=== PATIENT | female | born 1990 | race Caucasian/White ===

== ENCOUNTER 2020-06-22 21:54 | Emergency (ER) | payer OTHER, SELFPAY ==
--- NOTE | ~2020-06-22 | CT_ITS ---
EXAMINATION: CT ANGIOGRAM OF THE CHEST WITH AND WITHOUT CONTRAST (CT PULMONARY ANGIOGRAM FOR PE) CLINICAL INFORMATION: Reason for Exam COVID positive, chest pain, elevated D-dimer, rule out PE COMPARISON: Radiograph 06/22/2020 TECHNIQUE: Prior to contrast administration, noncontrast localization images were obtained. Subsequently, multidetector volumetric imaging was performed from the thoracic inlet to below the diaphragms following the administration of 65 mL Omnipaque 350 intravenous contrast. No contrast reaction reported Sagittal, coronal, and MIP oblique sagittal reformatted images were obtained on the CT workstation, uploaded to PACS, and reviewed. This CT examination was performed using dose optimization techniques as appropriate, variously including the following: *Automated exposure control *Adjustment of mA and/or kV according to patient size (this includes techniques or standardized protocols for targeted exams where dose is matched to indication/reason for exam; i.e. extremities or head) *Use of iterative reconstruction technique Total exam dose-length product 454 mGy-cm FINDINGS: QUALITY OF STUDY/CONTRAST BOLUS: Satisfactory. PULMONARY ARTERIES: No central or segmental pulmonary emboli. THORACIC AORTA: No aneurysm or dissection. LUNG: The central airways are patent. There is peripheral patchy opacity present in the right lower lobe. Minimal patchy opacity peripherally in both upper lobes. PLEURA: No pleural effusion or pneumothorax. MEDIASTINUM: Normal heart size. No pericardial effusion. No hilar or mediastinal lymphadenopathy. No evidence of septal bowing or right heart strain. CHEST WALL/AXILLA: No axillary or internal mammary lymphadenopathy. OSSEOUS STRUCTURES: No acute or suspicious osseous abnormality. UPPER ABDOMEN: Status post cholecystectomy. No reflux of contrast into the hepatic veins to suggest elevated right heart pressures. CT/CT angio chest PE protocol IMPRESSION: 1. No pulmonary embolism. 2. Patchy peripheral opacities are seen VTE: negative
--- NOTE | ~2020-06-22 | XR_ITS ---
EXAMINATION: XR CHEST CLINICAL INFORMATION: Chest pain COMPARISON: None TECHNIQUE: Frontal view of the chest was obtained. FINDINGS: The lungs are well expanded. There is no focal consolidation, edema, or effusion. No pneumothorax. The cardiomediastinal silhouette is within normal limits. No acute osseous abnormality. XR/XR chest 1V IMPRESSION: Clear lungs.
[2020-06-22 22:10] VITALS: BP 113/75; PULSE 109; RESP 17; TEMP 36.8; O2SAT 96; BMI 39.4
--- NOTE | 2020-06-22 22:12 | ECG_ITS ---
Test Reason : DIZZY Blood Pressure : / mmHG Vent. Rate : 102 BPM Atrial Rate : 102 BPM P-R Int : 122 ms QRS Dur : 074 ms QT Int : 332 ms P-R-T Axes : 035 031 022 degrees QTc Int : 432 ms Sinus tachycardia Otherwise normal ECG No previous ECGs available Referred By: Generic ED Physician Electronically Signed By:Kavon Willis
[2020-06-23 01:08] VITALS: BP 122/73; PULSE 95; RESP 20; TEMP 37.6; O2SAT 95
[2020-06-23 01:24] LABS: MANUAL DIFF FLAG NO
[2020-06-23 01:25] LABS: Basophils Percent Auto 0.3 % (0-2); Eosinophils Percent Auto 0.2 % (0-4); Hematocrit 46.9 % (37-47); Hemoglobin 15.5 g/dl (12.0-16.0); Imm Gran Abs Auto 0.01 X10*3/uL (0.00-0.03); Imm Gran Pct Auto 0.2 % (0.0-0.4); Lymphocytes Absolute Auto 1.6 X10*3/uL (1.2-4.9); Lymphocytes Percent Auto 28.5 % (20-40); Mean Corpuscular Hemoglobin 29.6 pg (27.0-33.0); Mean Corpuscular Volume 89.5 fL (80-98); Mean Platelet Volume 10.3 fL (9.4-12.3); Monocytes Absolute Auto 0.5 X10*3/uL (0.1-1.2); Monocytes Percent Auto 8.9 % (2-11); Neutrophils Absolute Auto 3.5 X10*3/uL (2.0-8.3); Neutrophils Percent Auto 61.9 % (45-73); Platelet Count 147 X10*3/uL (160-400); Red Blood Count 5.24 X10*6/uL (4.20-5.50); Red Cell Distribution Width 13.2 % (11.0-16.0); White Blood Count 5.7 X10*3/uL (4.8-10.8)
--- NOTE | 2020-06-23 01:39 | ED_ITS ---
HPI - Chest Pain General Chief Complaint: Chest Pain Stated Complaint: Chest pain/+Covid Time Seen by Provider: 06/23/20 01:21 Source: patient Mode of arrival: ambulatory Limitations: no limitations History of Present Illness HPI narrative: 30-year-old female who presents emergency department for evaluation of left-sided anterior chest pain. The patient was diagnosed with COVID-19 infection approximately 1 week prior. She states that her symptoms include fever, chills, nonproductive cough, myalgias and fatigue. She denied having chest pain, shortness of breath, dyspnea on exertion, change in her sense of taste or smell or diarrhea. She states that her symptoms remained about the same with no significant change until yesterday evening. She states that she was in bed at around 6:00 p.m. when she had a sudden onset of left-sided anterior chest pain. She points to her left anterior chest when asked to localize the pain. She describes the pain as a poking sensation which was constant for approximately 10 minutes and then resolved. The pain was moderate to severe in intensity. The pain was associated with diaphoresis, lightheadedness and dizziness. The patient was concerned about the pain and c calista to the emergency department for evaluation. Since being in the emergency department she has had no further episodes of this type of chest pain. Related Data Allergies Allergy/AdvReac Type Severity Reaction Status Date / Time No Known Allergies Allergy Unverified 11/19/19 19:20 [No Known Allergies*] Review of Systems Review of Systems: Yes all other systems are reviewed and are negative [facility] Past Medical History [facility] Narrative: The patient has no chronic medical conditions that she takes medications for. She has a past surgical history for cholecystectomy and C- section. She denies tobacco use. She states she drinks alcohol in moderation on the weekends, she denies drug use. Medical History COVID-19 Social History Social History Advance Directives: No Advance Directives Information Provided: No Physical Exam Vital Signs: Vital Signs: Last Vital Signs Temp 99.6 F 06/23/20 01:08 Pulse 85 06/23/20 04:46 Resp 16 06/23/20 04:46 BP 131/71 06/23/20 04:46 Pulse Ox 97 06/23/20 04:46 Body Mass Index 39.4 Const: General: cooperative and healthy appearing Orientation/consciousness: oriented to person and oriented to place Limitations: no limitations HENMT: Head: Yes normal to inspection, Yes normocephalic and Yes atraumatic Ears: external ears normal General nose exam: Normal external nose present Face and sinus: Yes normal facial exam Mouth: Normal oral and palatal mucosa present Throat: Yes posterior oropharynx normal Eyes: Periorbital: periorbital findings normal Eyelids: Yes eyelids normal Conjunctivae: conjunctivae normal Sclerae: sclerae normal Corneas: corneas normal Pupils: Equal, round and reactive pupils present Direct Ophthalmoscopy: normal light reflex Neck: Neck: Yes full ROM, Yes no lymphadenopathy, Yes no meningeal signs, Yes trachea midline and Yes supple Chest: Chest palpation & inspection: normal inspection of the chest and normal palpation of entire chest wall Resp: Effort & Inspection: normal respiratory effort and able to speak in complete sentences Auscultation: clear to auscultation bilaterally Cardio: Rate: regular rate Rhythm: regular rhythm Heart sounds: S1 no rmal heart sound present, S2 normal heart sound present and no murmurs GI: Inspection: Yes normal to inspection Palpation (GI): Soft to palpation, nontender, no guarding, not rigid and No hepatosplenomegaly present : General: Yes no CVA tenderness Back/Spine/Pelvis: Back: no CVA tenderness Cervical Spine: normal cervical lordosis Thoracic/Lumbar Spine: thoracic and lumbar spine normal to inspection Skin: Lesions: no lesions Rashes: no rashes Wounds: no wounds Neuro: General: oriented to person, oriented to place and no meningeal signs Cranial nerves: Yes CN's II-XII intact bilaterally and Yes Equal, round and reactive pupils present Cognition (Neuro): normal cognition Motor exam (neuro): 5/5 motor strength present throughout Extrem: General: Yes normal to inspection and Yes full ROM Psych: Appearance: well kempt Mental Status: mental status grossly normal Speech and movement: Normal speech and movement present Affect: normal affect Attitude: cooperative Thought process: Normal thought process present Thought content: Normal thought content present Course Course Course Narrative: 30-year-old female COVID 19 positive x1 week who presents emergency department for evaluation of sudden onset of left anterior chest pain that lasted approximately 10 minutes then resolved. The pain was associated with diaphoresis and lightheadedness. Patient's physical examination was unremarkable. The patient's 12 EKG did reveal a sinus tachycardia. I did order a CBC, BMP, troponin, D-dimer, EKG and chest x-ray on this patient. 0538: The patient's laboratory evaluation was unremarkable except for an elevated D-dimer of 315. The patient's high sensitivity troponin was undetectable. The chest x-ray revealed no acute process. CT pulmonary angiogram PE protocol revealed no pulmonary embolism, the patient does have patchy infiltrates consistent with a viral pneumonia. I did discuss this with the patient. At this time she is not hypoxic her O2 saturation ranged between 95 and 97% on room air. The patient will not be started on antibiotics or steroids will be discharged home with printed instructions on COVID-19 pneumonia. MDM - Chest Pain Lab Data Result diagrams: 06/23/20 01:18 06/23/20 01:18 Labs: Lab Results 06/23/20 06/23/20 06/23/20 Range/Units 01:18 01:18 01:18 WBC 5.7 (4.8-10.8) X10*3/uL RBC 5.24 (4.20-5.50) X10*6/uL Hgb 15.5 (12.0-16.0) g/dl Hct 46.9 (37-47) % MCV 89.5 (80-98) fL MCH 29.6 (27.0-33.0) pg MCHC 33.0 (31.0-35.0) g/dl RDW 13.2 (11.0-16.0) % Plt Count 147 L (160-400) X10*3/uL MPV 10.3 (9.4-12.3) fL Immature Gran % (Auto) 0.2 (0.0-0.4) % Neut % (Auto) 61.9 (45-73) % Lymph % (Auto) 28.5 (20-40) % [place] % (Auto) 8.9 (2-11) % Eos % (Auto) 0.2 (0-4) % Baso % (Auto) 0.3 (0-2) % Lymph # (Auto) 1.6 (1.2-4.9) X10*3/uL [place] # (Auto) 0.5 (0.1-1.2) X10*3/uL Eos # (Auto) 0.0 (0.0-0.4) X10*3/uL Baso # (Auto) 0.0 (0.0-0.2) X10*3/uL Abs Immat Gran (auto) 0.01 (0.00-0.03) X10*3/uL Absolute Neuts (auto) 3.5 (2.0-8.3) X10*3/uL Absolute Nucleated RBC 0.000 (0.0-0.012) X10*3/uL Nucleated RBC % (auto) 0.0 (0.0-0.2) /100WBC D-Dimer 315 NG/ML Hold Blue Top SEE NOTE Sodium 138 (135-145) mmol/L Potassium 4.2 (3.3-5.1) mmol/L Chloride 102 (96-108) mmol/L Carbon Dioxide 25 (22-29) mmol/L Anion Gap 15 (12-20) BUN 10 (9-16) mg/dL Creatinine 0.84 (0.5-1.4) mg/dL Estim Creat Clear Calc 115.2 Estimated GFR > 60 Random Glucose 113 (60-115) mg/dL Calcium 9.2 (8.4-10.2) mg/dL Troponin I High Sens (<3.5-17.0) ng/L Beta HCG, Quant < 2 mIU/mL 06/23/20 Range/Units 01:18 WBC (4.8-10.8) X10*3/uL RBC (4.20-5.50) X10*6/uL Hgb (12.0-16.0) g/dl Hct (37-47) % MCV (80-98) fL MCH (27.0-33.0) pg MCHC (31.0-35.0) g/dl RDW (11.0-16.0) % Plt Count (160-400) X10*3/uL MPV (9.4-12.3) fL Immature Gran % (Auto) (0.0-0.4) % Neut % (Auto) (45-73) % Lymph % (Auto) (20-40) % [place] % (Auto) (2-11) % Eos % (Auto) (0-4) % Baso % (Auto) (0-2) % Lymph # (Auto) (1.2-4.9) X10*3/uL [place] # (Auto) (0.1-1.2) X10*3/uL Eos # (Auto) (0.0-0.4) X10*3/uL Baso # (Auto) (0.0-0.2) X10*3/uL Abs Immat Gran (auto) (0.00-0.03) X10*3/uL Absolute Neuts (auto) (2.0-8.3) X10*3/uL Absolute Nucleated RBC (0.0-0.012) X10*3/uL Nucleated RBC % (auto) (0.0-0.2) /100WBC D-Dimer NG/ML Hold Blue Top Sodium (135-145) mmol/L Potassium (3.3-5.1) mmol/L Chloride (96-108) mmol/L Carbon Dioxide (22-29) mmol/L Anion Gap (12-20) BUN (9-16) mg/dL Creatinine (0.5-1.4) mg/dL Estim Creat Clear Calc Estimated GFR Random Glucose (60-115) mg/dL Calcium (8.4-10.2) mg/dL Troponin I High Sens < 3.5 (<3.5-17.0) ng/L Beta HCG, Quant mIU/mL ECG Data ECG #1: Attestation: I personally reviewed and interpreted this ECG as follows: Interpretation: 2223: Sinus tachycardia with a rate of 102, normal [place] interval, QRS and QTC intervals, no ST segment elevation or depression, no T- wave abnormalities, except for the tachycardia this is a normal EKG Discharge Plan Discharge Clinical Impression: Chest pain, Pneumonia due to 2019-nCoV Patient Disposition: Home, Self-Care Instructions: COVID-19 (Coronavirus Disease 2019) (ED), Pneumonia (ED) Additional Instructions: Your laboratory evaluation was normal except for an elevated D-dimer. Your chest x-ray was normal. The CT scan of your chest with IV contrast did not reveal any blood clots in your lung which is reassuring however you do have an early viral pneumonia, this is caused by the COVID-19 virus. At this time, your symptoms are mild and you her oxygen level is normal therefore you do not need to be hospitalized, treated with antibiotics were treated with steroids. Insert pain medication Follow-up with your doctor in 2 days. Please return to the emergency department if your symptoms get worse or if you develop any symptoms that are concerning to you.
[2020-06-23 01:46] LABS: D Dimer 315 NG/ML
[2020-06-23 01:48] LABS: Anion Gap 15 (12-20); Blood Urea Nitrogen 10 mg/dL (9-16); Calcium 9.2 mg/dL (8.4-10.2); Carbon Dioxide 25 mmol/L (22-29); Chloride 102 mmol/L (96-108); Creatinine Clr Calc Pharmacy 115.2; Estimated Glomerular Filt Rate > 60; Glucose Random 113 mg/dL (60-115); Potassium 4.2 mmol/L (3.3-5.1); Sodium 138 mmol/L (135-145)
[2020-06-23 01:56] LABS: Troponin-I High Sensitivity < 3.5 ng/L (<3.5-17.0)
[2020-06-23 04:18] LABS: HCG Quantitative < 2 mIU/mL
[2020-06-23 04:46] VITALS: BP 131/71; PULSE 85; RESP 16; O2SAT 97
--- NOTE | 2020-06-23 04:47 | PC.NURSE ---
Pt resting on stretcher in NAD, breathing with ease on RA. Pt denies pain at this time but reports I get it when I cough. Pt awaiting CT scan which was initially delayed d/t inability of pt to answer CT screening questions. HCG quant by blood has resulted, CT aware and plan to take pt for scan shortly. PT aware. Stretcher remains in low locked position, rail raised. VSS.
[2020-06-23] MEDS: iohexoL 350 MG/ML 100 ML INFUS..BTL 65 ML IV (05:15)
== END 2020-06-23 06:15 | disposition home or self-care (01) ==
PROVIDERS: Emergency Provider Emergency Medicine Emergency Medical Services
DX: U07.1 COVID-19 (principal); J12.82 Pneumonia due to coronavirus disease 2019; R07.9 Chest pain, unspecified
CPT/HCPCS: 36415; 71045; 71275; 80048; 84484; 84702; 85025; 85379; 93005; 99284; Q9967

== ENCOUNTER 2021-09-28 20:34 | Emergency (ER) | payer OTHER, SELFPAY ==
[2021-09-28 21:53] VITALS: BP 117/91; PULSE 83; RESP 18; TEMP 37.3; O2SAT 98; BMI 39.4
[2021-09-29 00:06] LABS: MANUAL DIFF FLAG NO
[2021-09-29 00:10] LABS: Basophils Percent Auto 0.3 % (0-2); Eosinophils Absolute Auto 0.1 X10*3/uL (0.0-0.4); Eosinophils Percent Auto 0.8 % (0-4); Hematocrit 41.5 % (37.0-47.0); Hemoglobin 13.8 g/dl (12.0-16.0); Imm Gran Abs Auto 0.05 X10*3/uL (0.00-0.03); Imm Gran Pct Auto 0.4 % (0.0-0.4); Lymphocytes Absolute Auto 3.3 X10*3/uL (1.2-4.9); Lymphocytes Percent Auto 26.9 % (20-40); Mean Corpuscular HGB Conc 33.3 g/dl (31.0-35.0); Mean Corpuscular Hemoglobin 29.9 pg (27.0-33.0); Mean Corpuscular Volume 89.8 fL (80.0-98.0); Mean Platelet Volume 10.2 fL (9.4-12.3); Monocytes Absolute Auto 0.9 X10*3/uL (0.1-1.2); Neutrophils Percent Auto 64.6 % (45-73); Platelet Count 232 X10*3/uL (160-400); Red Blood Count 4.62 X10*6/uL (4.20-5.50); Red Cell Distribution Width 13.7 % (11.0-16.0); White Blood Count 12.4 X10*3/uL (4.8-10.8)
[2021-09-29 00:11] LABS: Appearance Urine CLEAR; Color Urine YELLOW; Glucose Urine UA NEG (NEG); Leukocyte Esterase Urine NEG (NEG); Nitrite Urine NEG (NEG); Specific Gravity - Urine 1.025 (1.005-1.025); Urine Blood NEG (NEG); Urine Ketones NEG (NEG); Urine Protein NEG (NEG-TRACE)
[2021-09-29 00:13] LABS: UPreg QC Valid YES; Urine Pregnancy NEGATIVE (NEGATIVE)
[2021-09-29 00:23] LABS: Alanine Aminotransferase 10 U/L (0-31); Albumin Level 4.5 g/dL (3.5-5.0); Alkaline Phosphatase 68 U/L (39-117); Anion Gap 12 (12-20); Aspartate Amino Transferase 12 U/L (5-31); Bilirubin Direct 0.2 mg/dL (0.0-0.5); Bilirubin Total 0.5 mg/dL (0.0-1.0); Blood Urea Nitrogen 10 mg/dL (9-16); Calcium 9.6 mg/dL (8.4-10.2); Carbon Dioxide 27 mmol/L (22-29); Chloride 101 mmol/L (96-108); Creatinine Clr Calc Pharmacy 121.4; Estimated Glomerular Filt Rate > 60; Glucose Random 104 mg/dL (60-115); Lipase 36 U/L (8-78); Sodium 136 mmol/L (135-145); Total Protein 7.1 g/dL (6.5-8.0)
[2021-09-29 02:00] VITALS: BP 109/76; PULSE 69; TEMP 36.7; O2SAT 100
[2021-09-29 04:00] VITALS: BP 121/75; PULSE 60; O2SAT 97
[2021-09-29 06:00] VITALS: BP 128/79; PULSE 64; O2SAT 99
[2021-09-29 08:00] VITALS: BP 123/88; PULSE 75; RESP 16; O2SAT 100
[2021-09-29] MEDS: Lidocaine HCl Viscous 2 % 15 ML SOLUTION 10 ML MUCOUS MEM (08:00)
[2021-09-29] MEDS: Magnesium Hydrox/Alum Hydrox 30 ML ORAL.SUSP PO (08:00)
[2021-09-29] MEDS: Ondansetron ODT 4 MG TAB.RAPDIS TRANSLINGU (08:01)
--- NOTE | 2021-09-29 08:16 | ED.ABDPAIN ---
HPI - Abdominal Pain General Chief Complaint: Abdominal Pain Stated Complaint: abdominal pain Time Seen by Provider: 09/29/21 07:28 Source: patient Mode of arrival: ambulatory History of Present Illness HPI narrative: 31-year-old female with presentation for 1 week of epigastric discomfort that is worse at night and is described as burning sensation and not associated with any fever, chills but patient has been feeling nauseous but otherwise denies vomiting or dysuria. Patient does endorse that she has been drinking heavily since the passing of her uncle and does suffer from acid reflux at baseline. She is status post cholecystectomy and otherwise denies shortness of breath or chest pain/palpitations. Related Data Allergies Allergy/AdvReac Type Severity Reaction Status Date / Time No Known Allergies Allergy Unverified 11/19/19 19:20 [No Known Allergies*] Review of Systems Review of Systems Pertinent positives and negatives as stated in HPI 10 point review of systems is otherwise negative. PMFSH Past Medical History Source: nursing notes reviewed Medical History COVID-19 Social History Social History Advance Directives: No Advance Directives Information Provided: Yes Physical Exam ED Vital Signs: Vital Signs - 24 hr 09/28/21 21:53 09/29/21 02:00 09/29/21 04:00 Temperature 99.2 F 98.1 F Pulse Rate 83 69 60 Respiratory Rate 18 Blood Pressure 117/91 H 109/76 121/75 Pulse Oximetry 98 100 97 Oxygen Delivery Method Room Air Room Air Room Air 09/29/21 06:00 09/29/21 08:00 Temperature Pulse Rate 64 75 Respiratory Rate 16 Blood Pressure 128/79 123/88 Pulse Oximetry 99 100 Oxygen Delivery Method Room Air Room Air BMI result Body Mass Index 39.4 VITAL SIGNS: Reviewed. GENERAL: Well developed, well nourished, in no acute distress. HEAD: Normocephalic/atraumatic EYES: PERRLA, EOMI EARS: Ext canals without abnormality OROPHARYNX: no oral lesions noted, posterior pharynx clear LUNGS: Normal breath sounds. No adventitious sounds or accessory muscle use. SpO2<98> CARDIOVASCULAR: Regular rate and rhythm without noted murmurs ABDOMEN: Soft, minimal tenderness to palpation at the epigastrium without rebound, non-distended with bowel sounds. NEUROLOGIC: Alert and oriented x 4. Course Course Course Narrative: 31-year-old female with history and clinical presentation suggestive possible alcoholic gastritis, pancreatitis, and on review of all investigations there are no acute findings other than a leukocytosis which is likely reactive. Patient was provided with a GI cocktail as well as Zofran and on re-evaluation is feeling better. She is otherwise discharged home in stable condition with encouragement to drink more water, avoid alcohol, and use [id number] Mylanta. MDM - Abdominal Pain Lab Data Result diagrams: 09/29/21 00:00 09/29/21 00:00 Labs: Lab Results 09/29/21 09/29/21 09/29/21 Range/Units 00:00 00:00 00:00 WBC 12.4 H (4.8-10.8) X10*3/uL RBC 4.62 (4.20-5.50) X10*6/uL Hgb 13.8 (12.0-16.0) g/dl Hct 41.5 (37.0-47.0) % MCV 89.8 (80.0-98.0) fL MCH 29.9 (27.0-33.0) pg MCHC 33.3 (31.0-35.0) g/dl RDW 13.7 (11.0-16.0) % Plt Count 232 (160-400) X10*3/uL MPV 10.2 (9.4-12.3) fL Immature Gran % (Auto) 0.4 (0.0-0.4) % Neut % (Auto) 64.6 (45-73) % Lymph % (Auto) 26.9 (20-40) % [place] % (Auto) 7.0 (2-11) % Eos % (Auto) 0.8 (0-4) % Baso % (Auto) 0.3 (0-2) % Lymph # (Auto) 3.3 (1.2-4.9) X10*3/uL [place] # (Auto) 0.9 (0.1-1.2) X10*3/uL Eos # (Auto) 0.1 (0.0-0.4) X10*3/uL Baso # (Auto) 0.0 (0.0-0.2) X10*3/uL Abs Immat Gran (auto) 0.05 H (0.00-0.03) X10*3/uL Absolute Neuts (auto) 8.0 (2.0-8.3) x10*3/uL Absolute Nucleated RBC 0.000 (0.0-0.012) X10*3/uL Nucleated RBC % (auto) 0.0 (0.0-0.2) /100WBC Sodium 136 (135-145) mmol/L Potassium 4.0 (3.3-5.1) mmol/L Chloride 101 (96-108) mmol/L Carbon Dioxide 27 (22-29) mmol/L Anion Gap 12 (12-20) BUN 10 (9-16) mg/dL Creatinine 0.79 (0.5-1.4) mg/dL Estim Creat Clear Calc 121.4 Estimated GFR > 60 Random Glucose 104 (60-115) mg/dL Calcium 9.6 (8.4-10.2) mg/dL Total Bilirubin 0.5 (0.0-1.0) mg/dL Direct Bilirubin 0.2 (0.0-0.5) mg/dL AST 12 (5-31) U/L ALT 10 (0-31) U/L Alkaline Phosphatase 68 (39-117) U/L Total Protein 7.1 (6.5-8.0) g/dL Albumin 4.5 (3.5-5.0) g/dL Lipase 36 (8-78) U/L Urine Color YELLOW Urine Appearance CLEAR Urine pH 6.0 (5.0-8.0) Ur Specific [place] 1.025 (1.005-1.025) Urine Protein NEG (NEG-TRACE) MG/DL Urine Glucose (UA) NEG (NEG) MG/DL Urine Ketones NEG (NEG) MG/DL Urine Blood NEG (NEG) Urine Nitrite NEG (NEG) Ur Leukocyte Esterase NEG (NEG) Urine Test (NEGATIVE) 09/29/21 Range/Units 00:00 WBC (4.8-10.8) X10*3/uL RBC (4.20-5.50) X10*6/uL Hgb (12.0-16.0) g/dl Hct (37.0-47.0) % MCV (80.0-98.0) fL MCH (27.0-33.0) pg MCHC (31.0-35.0) g/dl RDW (11.0-16.0) % Plt Count (160-400) X10*3/uL MPV (9.4-12.3) fL Immature Gran % (Auto) (0.0-0.4) % Neut % (Auto) (45-73) % Lymph % (Auto) (20-40) % [place] % (Auto) (2-11) % Eos % (Auto) (0-4) % Baso % (Auto) (0-2) % Lymph # (Auto) (1.2-4.9) X10*3/uL [place] # (Auto) (0.1-1.2) X10*3/uL Eos # (Auto) (0.0-0.4) X10*3/uL Baso # (Auto) (0.0-0.2) X10*3/uL Abs Immat Gran (auto) (0.00-0.03) X10*3/uL Absolute Neuts (auto) (2.0-8.3) x10*3/uL Absolute Nucleated RBC (0.0-0.012) X10*3/uL Nucleated RBC % (auto) (0.0-0.2) /100WBC Sodium (135-145) mmol/L Potassium (3.3-5.1) mmol/L Chloride (96-108) mmol/L Carbon Dioxide (22-29) mmol/L Anion Gap (12-20) BUN (9-16) mg/dL Creatinine (0.5-1.4) mg/dL Estim Creat Clear Calc Estimated GFR Random Glucose (60-115) mg/dL Calcium (8.4-10.2) mg/dL Total Bilirubin (0.0-1.0) mg/dL Direct Bilirubin (0.0-0.5) mg/dL AST (5-31) U/L ALT (0-31) U/L Alkaline Phosphatase (39-117) U/L Total Protein (6.5-8.0) g/dL Albumin (3.5-5.0) g/dL Lipase (8-78) U/L Urine Color Urine Appearance Urine pH (5.0-8.0) Ur Specific [place] (1.005-1.025) Urine Protein (NEG-TRACE) MG/DL Urine Glucose (UA) (NEG) MG/DL Urine Ketones (NEG) MG/DL Urine Blood (NEG) Urine Nitrite (NEG) Ur Leukocyte Esterase (NEG) Urine Test NEGATIVE (NEGATIVE) Discharge Plan Discharge Clinical Impression: Alcoholic gastritis Patient Disposition: Home, Self-Care Instructions: Gastritis (ED), Diet for Stomach Ulcers and Gastritis (ED) Additional Instructions: 1. Stop drinking alcohol at this time, increase water intake. 2. Please review the recommendations for dietary considerations with as the inflammation in your stomach resolves. 3. Recommend [id number] Mylanta 3 times a day as directed on the outside bottle. Return to the ER for worsening symptoms.
== END 2021-09-29 09:02 | disposition home or self-care (01) ==
PROVIDERS: Emergency Provider Student in an Organized Health Care Education/Training Program
DX: K29.20 Alcoholic gastritis without bleeding (principal); Z90.49 Acquired absence of other specified parts of digestive tract
CPT/HCPCS: 36415; 80053; 81003; 81025; 82248; 83690; 85025; 99283; 99284

== ENCOUNTER 2022-04-10 14:30 | Emergency (ER) | payer OTHER, SELFPAY ==
--- NOTE | ~2022-04-10 | XR_ITS ---
EXAMINATION: XR CHEST CLINICAL INFORMATION: Chest pain. COMPARISON: 06/22/2020 chest radiograph. TECHNIQUE: 2 views of the chest were obtained. FINDINGS: No significant abnormality is noted involving the heart, lungs, mediastinum, bony thorax or soft tissues. XR/XR chest 2V IMPRESSION: No acute cardiopulmonary process.
--- NOTE | 2022-04-10 14:41 | ECG_ITS ---
Test Reason : chest pain Blood Pressure : / mmHG Vent. Rate : 077 BPM Atrial Rate : 077 BPM P-R Int : 152 ms QRS Dur : 078 ms QT Int : 374 ms P-R-T Axes : 035 007 015 degrees QTc Int : 423 ms Normal sinus rhythm Minimal voltage criteria for LVH, may be normal variant ( R in aVL ) Borderline ECG When compared with ECG of 22-JUN-2020 22:23, No significant change was found Referred By: Kathy Vale Electronically Signed By:GEO MONTES MD
[2022-04-10 14:50] VITALS: BP 144/86; PULSE 107; RESP 20; TEMP 36.6; O2SAT 99; BMI 39.4
--- NOTE | 2022-04-10 14:50 | ED_ITS ---
HPI - Chest Pain General Chief Complaint: Chest Pain <Kathy Vale CNP - Last Filed: 04/10/22 14:54> Stated Complaint: chest pain <Kathy Vale CNP - Last Filed: 04/10/22 14:54> Time Seen by Provider: 04/10/22 16:43 <Kathy Vale CNP - Last Filed: 04/10/22 14:54> Source: patient <Da Mcgill MD - Last Filed: 04/10/22 17:16> Mode of arrival: ambulatory <Da Mcgill MD - Last Filed: 04/10/22 17:16> Limitations: no limitations <Da Mcgill MD - Last Filed: 04/10/22 17:16> History of Present Illness HPI narrative: 32-year-old female patient who presents emergency department for evaluation of chest pain times 2-3 days. The patient states she has been getting intermittent, sharp pain and she points to her left anterior chest along the costochondral joints when asked to localize the pain. She states she gets an episode every 2 hours and will last approximately 5-10 minutes. She states occasionally she feels lightheaded with the chest pain. She denied pain radiation to her neck, jaw, back or arms. She denied associated shortness of breath nausea, vomiting or diaphoresis. The pain is not related to her activity level, the pain can come on at rest or with exertion, she denies fatigue with exertion or dyspnea on exertion. She states she has had palpitations in the past and she has been feeling some skipped beats over the past several days as well. She states she has not gone on any long trips, she denies any pain or swelling in her legs or abdomen, she has had no recent surgeries, she is not on control pills. She states that there is no history of early myocardial infarction in her family, she states that her mother had a heart attack in her 70s approximately 1 year prior and is doing well. <Da Mcgill MD - Last Filed: 04/10/22 17:16> Related Data Allergies/Adverse Reactions: Allergies Allergy/AdvReac Type Severity Reaction Status Date / Time No Known Allergies Allergy Unverified 11/19/19 19:20 [No Known Allergies*] <Kathy Vale CNP - Last Filed: 04/10/22 14:54> Review of Systems Review of Systems: Yes all other systems are reviewed and are negative <Da Mcgill MD - Last Filed: 04/10/22 17:16> [facility] Past Medical History [facility] Narrative: Past medical history: Pneumonia secondary to COVID-19 approximately 1/2 years prior, no residual symptoms. Past surgical history: Cholecystectomy 4 years prior, 10 years prior. Social history: She denies tobacco use. She drinks alcohol twice a week. She denies drug use. <Da Mcgill MD - Last Filed: 04/10/22 17:16> Medical History: Medical History COVID-19 <Kathy Vale CNP - Last Filed: 04/10/22 14:54> Social History Social History: Social History Advance Directives: No Advance Directives Information Provided: No <Kathy Vale CNP - Last Filed: 04/10/22 14:54> Physical Exam Vital Signs: Vital Signs: Last Vital Signs Temp 97.8 F 04/10/22 14:50 Pulse 107 H 04/10/22 14:50 Resp 20 04/10/22 14:50 BP 144/86 H 04/10/22 14:50 Pulse Ox 99 04/10/22 14:50 O2 Del Method 04/10/22 14:50 BMI result Body Mass Index 39.4 <Kathy Vale CNP - Last Filed: 04/10/22 14:54> Vital Signs: Last Vital Signs Temp 97.8 F 04/10/22 14:50 Pulse 107 H 04/10/22 14:50 Resp 04/10/22 14:50 BP 144/86 H 04/10/22 14:50 Pulse Ox 99 04/10/22 14:50 O2 Del Method 04/10/22 14:50 BMI result Body Mass Index 39.4 <Da Mcgill MD - Last Filed: 04/10/22 17:16> Const: Other: Awake, alert, female patient, very pleasant cooperative, does not appear to be in distress, answers all questions appropriately, elevated BMI of 39.5. <Da Mcgill MD - Last Filed: 04/10/22 17:16> HEENT: Head: Yes normal to inspection, Yes normocephalic and Yes atraumatic <Da Mcgill MD - Last Filed: 04/10/22 17:16> Ears: external ears normal <Da Mcgill MD - Last Filed: 04/10/22 17:16> General nose exam: Normal external nose present <Da Mcgill MD - Last Filed: 04/10/22 17:16> Face and sinus: Yes normal facial exam <Da Mcgill MD - Last Filed: 04/10/22 17:16> Mouth: Normal oral and palatal mucosa present <Da Mcgill MD - Last Filed: 04/10/22 17:16> Throat: Yes posterior oropharynx normal <Da Mcgill MD - Last Filed: 04/10/22 17:16> Eyes: General: appearance normal, both eyes and all related structures <Da Mcgill MD - Last Filed: 04/10/22 17:16> Pupils: Equal, round and reactive pupils present <Da Mcgill MD - Last Filed: 04/10/22 17:16> Neck: Neck: Yes normal visual inspection, Yes no lymphadenopathy, Yes trachea midline and Yes supple <Da Mcgill MD - Last Filed: 04/10/22 17:16> Chest: Other: The patient does have pain with palpation over her left chest in the area of the left costochondral joints. <Da Mcgill MD - Last Filed: 04/10/22 17:16> Resp: Effort & Inspection: normal respiratory effort and able to speak in complete sentences <Da Mcgill MD - Last Filed: 04/10/22 17:16> Auscultation: clear to auscultation bilaterally <Da Mcgill MD - Last Filed: 04/10/22 17:16> Cardio: Rate: regular rate <Da Mcgill MD - Last Filed: 04/10/22 17:16> Rhythm: regular rhythm <Da Mcgill MD - Last Filed: 04/10/22 17:16> Heart sounds: S1 normal heart sound present, S2 normal heart sound present and no murmurs <Da Mcgill MD - Last Filed: 04/10/22 17:16> GI: Inspection: Yes normal to inspection <Da Mcgill MD - Last Filed: 04/10/22 17:16> Palpation (GI): Soft to palpation, nontender and no guarding <Da Mcgill MD - Last Filed: 04/10/22 17:16> Auscultation: normal bowel sounds <Da Mcgill MD - Last Filed: 04/10/22 17:16> : General: Yes no CVA tenderness <Da Mcgill MD - Last Filed: 04/10/22 17:16> Back/Spine/Pelvis: Back: no CVA tenderness <Da Mcgill MD - Last Filed: 04/10/22 17:16> Skin: General skin exam: no rashes or lesions noted <Da Mcgill MD - Last Filed: 04/10/22 17:16> Neuro: Cranial nerves: Yes CN's II-XII intact bilaterally and Yes Equal, round and reactive pupils present <Da Mcgill MD - Last Filed: 04/10/22 17:16> Cognition (Neuro): normal cognition <Da Mcgill MD - Last Filed: 04/10/22 17:16> Motor exam (neuro): 5/5 motor strength present throughout <Da Mcigll MD - Last Filed: 04/10/22 17:16> Extrem: General: Yes normal to inspection <Da Mcgill MD - Last Filed: 04/10/22 17:16> Psych: Appearance: grossly normal <Da Mcgill MD - Last Filed: 04/10/22 17:16> Speech and movement: Normal speech and movement present <Da Mcgill MD - Last Filed: 04/10/22 17:16> Affect: normal affect <Da Mcgill MD - Last Filed: 04/10/22 17:16> Attitude: cooperative <Da Mcgill MD - Last Filed: 04/10/22 17:16> Thought process: Normal thought process present <Da Mcgill MD - Last Filed: 04/10/22 17:16> Thought content: Normal thought content present <Da Mcgill MD - Last Filed: 04/10/22 17:16> Course Course Course Narrative: This is an RME: Additional HPI, ROS, PE not included below will be deferred to primary provider. Patient is a 32-year-old female who presents to the emergency department for evaluation of chest pain. Reports history of palpitations over the past year intermittently. Developed chest pain yesterday, intermittent, sub sternal, lasting 5 minutes approximately with onset during exertion and at rest, self resolves with rest. Denies shortness of breath, nausea, vomiting. Reports similar pain 1 year ago, advised due to anxiety. D enies pmhx. Plan: labs, EKG, CXR, viral testing <Kathy Vale CNP - Last Filed: 04/10/22 14:54> This is an RME: Additional HPI, ROS, PE not included below will be deferred to primary provider. Patient is a 32-year-old female who presents to the emergency department for evaluation of chest pain. Reports history of palpi tations over the past year intermittently. Developed chest pain yesterday, intermittent, sub sternal, lasting 5 minutes approximately with onset during exertion and at rest, self resolves with rest. Denies shortness of breath, nausea, vomiting. Reports similar pain 1 year ago, advised due to anxiety. Denies pmhx. Plan: labs, EKG, CXR, viral testing <Da Mcgill MD - Last Filed: 04/10/22 17:16> Medical Decision Making Medical Decision Making MDM Narrative: 55-year-old female who presents emergency department for evaluation of 2 days of intermittent chest pain, coming on every 1-2 hours, lasting approximately 5 minutes, located along the left costochondral joints of her anterior chest, occasional lightheadedness and palpitations associated with the pain with no other significant associated symptoms. Patient has no significant cardiac risk factors except for her elevated BMI. She has no significant risk factors for pulmonary embolism. Patient did have tenderness palpation of her left chest. Labs were unremarkable including a nondetectable high sensitive troponin I, normal chest x-ray and unremarkable EKG unchanged from previous. Nishant nicholson's presentation is consistent with acute costochondritis. I did discuss this with her. Patient was advised to take ibuprofen 40 mg 3 times a day for the next 4-5 days then as needed, she is also advised to take Tylenol. She was given printed and verbal instructions and discharged home. <Da Mcgill MD - Last Filed: 04/10/22 17:16> Differential Diagnosis Differential diagnosis includes but is not limited to costochondritis, myocardial infarction, pulmonary embolism, pneumonia, palpitations. <Da Mcgill MD - Last Filed: 04/10/22 17:16> Lab Data MDM Lab Attestation statement: I reviewed the patient's lab results. <Da Mcgill MD - Last Filed: 04/10/22 17:16> Patient's laboratory evaluation did reveal an elevated white blood count [id number] as well normal. Patient's troponin was below detectable limits. <Da Mcgill MD - Last Filed: 04/10/22 17:16> Result Diagrams: 04/10/22 15:44 04/10/22 15:44 <Kathy Vale CNP - Last Filed: 04/10/22 14:54> Labs: Lab Results 04/10/22 04/10/22 04/10/22 Range/Units 15:44 15:44 15:44 WBC 11.6 H (4.8-10.8) X10*3/uL RBC 4.88 (4.20-5.50) X10*6/uL Hgb 14.5 (12.0-16.0) g/dl Hct 43.1 (37.0-47.0) % MCV 88.3 (80.0-98.0) fL MCH 29.7 (27.0-33.0) pg MCHC 33.6 (31.0-35.0) g/dl RDW 13.1 (11.0-16.0) % Plt Count 225 (160-400) X10*3/uL MPV 9.9 (9.4-12.3) fL Immature Gran % (Auto) 0.4 (0.0-0.4) % Neut % (Auto) 67.6 (45-73) % Lymph % (Auto) 24.8 (20-40) % [place] % (Auto) 5.7 (2-11) % Eos % (Auto) 1.2 (0-4) % Baso % (Auto) 0.3 (0-2) % Lymph # (Auto) 2.9 (1.2-4.9) X10*3/uL [place] # (Auto) 0.7 (0.1-1.2) X10*3/uL Eos # (Auto) 0.1 (0.0-0.4) X10*3/uL Baso # (Auto) 0.0 (0.0-0.2) X10*3/uL Abs Immat Gran (auto) 0.05 H (0.00-0.03) X10*3/uL Absolute Neuts (auto) 7.8 (2.0-8.3) x10*3/uL Absolute Nucleated RBC 0.000 (0.0-0.012) X10*3/uL Nucleated RBC % (auto) 0.0 (0.0-0.2) /100WBC PT 11.0 (10.0-13.1) SEC INR 1.0 (0.9-1.1) Sodium 138 (135-145) mmol/L Potassium 4.4 (3.3-5.1) mmol/L Chloride 106 (96-108) mmol/L Carbon Dioxide 22 (22-29) mmol/L Anion Gap 14 (12-20) BUN 7 L (9-16) mg/dL Creatinine 0.74 (0.5-1.4) mg/dL Estim Creat Clear Calc 128.4 Estimated GFR > 60 Random Glucose 94 (60-115) mg/dL Calcium 9.5 (8.4-10.2) mg/dL Magnesium 1.9 (1.6-2.6) mg/dL Total Bilirubin 0.5 (0.0-1.0) mg/dL AST 12 (5-31) U/L ALT 9 (0-31) U/L Alkaline Phosphatase 73 (39-117) U/L Troponin I High Sens (<3.5-17.0) ng/L Total Protein 7.0 (6.5-8.0) g/dL Albumin 4.3 (3.5-5.0) g/dL Lipase 23 (8-78) U/L Beta HCG, Quant < 2 mIU/mL COVID-19 (SANDOVAL) (Negative) COVID-19 Clin Com Influenza Type A (SERAFIN) (Negative) Influenza Type B (SERAFIN) (Negative) Influenza A & B Note 04/10/22 04/10/22 04/10/22 Range/Units 15:44 15:44 15:44 WBC (4.8-10.8) X10*3/uL RBC (4.20-5.50) X10*6/uL Hgb (12.0-16.0) g/dl Hct (37.0-47.0) % MCV (80.0-98.0) fL MCH (27.0-33.0) pg MCHC (31.0-35.0) g/dl RDW (11.0-16.0) % Plt Count (160-400) X10*3/uL MPV (9.4-12.3) fL Immature Gran % (Auto) (0.0-0.4) % Neut % (Auto) (45-73) % Lymph % (Auto) (20-40) % [place] % (Auto) (2-11) % Eos % (Auto) (0-4) % Baso % (Auto) (0-2) % Lymph # (Auto) (1.2-4.9) X10*3/uL [place] # (Auto) (0.1-1.2) X10*3/uL Eos # (Auto) (0.0-0.4) X10*3/uL Baso # (Auto) (0.0-0.2) X10*3/uL Abs Immat Gran (auto) (0.00-0.03) X10*3/uL Absolute Neuts (auto) (2.0-8.3) x10*3/uL Absolute Nucleated RBC (0.0-0.012) X10*3/uL Nucleated RBC % (auto) (0.0-0.2) /100WBC PT (10.0-13.1) SEC INR (0.9-1.1) Sodium (135-145) mmol/L Potassium (3.3-5.1) mmol/L Chloride (96-108) mmol/L Carbon Dioxide (22-29) mmol/L Anion Gap (12-20) BUN (9-16) mg/dL Creatinine (0.5-1.4) mg/dL Estim Creat Clear Calc Estimated GFR Random Glucose (60-115) mg/dL Calcium (8.4-10.2) mg/dL Magnesium (1.6-2.6) mg/dL Total Bilirubin (0.0-1.0) mg/dL AST (5-31) U/L ALT (0-31) U/L Alkaline Phosphatase (39-117) U/L Troponin I High Sens < 3.5 (<3.5-17.0) ng/L Total Protein (6.5-8.0) g/dL Albumin (3.5-5.0) g/dL Lipase (8-78) U/L Beta HCG, Quant mIU/mL COVID-19 (SANDOVAL) Negative (Negative) COVID-19 Clin Com See Note Influenza Type A (SERAFIN) Negative (Negative) Influenza Type B (SERAFIN) Negative (Negative) Influenza A & B Note See Note <Kathy Vale, HEATING SYSTEMS INSTALLER - Last Filed: 04/10/22 14:54> Lab Results 04/10/22 04/10/22 04/10/22 Range/Units 15:44 15:44 15:44 WBC 11.6 H (4.8-10.8) X10*3/uL RBC 4.88 (4.20-5.50) X10*6/uL Hgb 14.5 (12.0-16.0) g/dl Hct 43.1 (37.0-47.0) % MCV 88.3 (80.0-98.0) fL MCH 29.7 (27.0-33.0) pg MCHC 33.6 (31.0-35.0) g/dl RDW 13.1 (11.0-16.0) % Plt Count 225 (160-400) X10*3/uL MPV 9.9 (9.4-12.3) fL Immature Gran % (Auto) 0.4 (0.0-0.4) % Neut % (Auto) 67.6 (45-73) % Lymph % (Auto) 24.8 (20-40) % [place] % (Auto) 5.7 (2-11) % Eos % (Auto) 1.2 (0-4) % Baso % (Auto) 0.3 (0-2) % Lymph # (Auto) 2.9 (1.2-4.9) X10*3/uL [place] # (Auto) 0.7 (0.1-1.2) X10*3/uL Eos # (Auto) 0.1 (0.0-0.4) X10*3/uL Baso # (Auto) 0.0 (0.0-0.2) X10*3/uL Abs Immat Gran (auto) 0.05 H (0.00-0.03) X10*3/uL Absolute Neuts (auto) 7.8 (2.0-8.3) x10*3/uL Absolute Nucleated RBC 0.000 (0.0-0.012) X10*3/uL Nucleated RBC % (auto) 0.0 (0.0-0.2) /100WBC PT 11.0 (10.0-13.1) SEC INR 1.0 (0.9-1.1) Sodium 138 (135-145) mmol/L Potassium 4.4 (3.3-5.1) mmol/L Chloride 106 (96-108) mmol/L Carbon Dioxide 22 (22-29) mmol/L Anion Gap 14 (12-20) BUN 7 L (9-16) mg/dL Creatinine 0.74 (0.5-1.4) mg/dL Estim Creat Clear Calc 128.4 Estimated GFR > 60 Random Glucose 94 (60-115) mg/dL Calcium 9.5 (8.4-10.2) mg/dL Magnesium 1.9 (1.6-2.6) mg/dL Total Bilirubin 0.5 (0.0-1.0) mg/dL AST 12 (5-31) U/L ALT 9 (0-31) U/L Alkaline Phosphatase 73 (39-117) U/L Troponin I High Sens (<3.5-17.0) ng/L Total Protein 7.0 (6.5-8.0) g/dL Albumin 4.3 (3.5-5.0) g/dL Lipase 23 (8-78) U/L Beta HCG, Quant < 2 mIU/mL COVID-19 (SANDOVAL) (Negative) COVID-19 Clin Com Influenza Type A (SERAFIN) (Negative) Influenza Type B (SERAFIN) (Negative) Influenza A & B Note 04/10/22 04/10/22 04/10/22 Range/Units 15:44 15:44 15:44 WBC (4.8-10.8) X10*3/uL RBC (4.20-5.50) X10*6/uL Hgb (12.0-16.0) g/dl Hct (37.0-47.0) % MCV (80.0-98.0) fL MCH (27.0-33.0) pg MCHC (31.0-35.0) g/dl RDW (11.0-16.0) % Plt Count (160-400) X10*3/uL MPV (9.4-12.3) fL Immature Gran % (Auto) (0.0-0.4) % Neut % (Auto) (45-73) % Lymph % (Auto) (20-40) % [place] % (Auto) (2-11) % Eos % (Auto) (0-4) % Baso % (Auto) (0-2) % Lymph # (Auto) (1.2-4.9) X10*3/uL [place] # (Auto) (0.1-1.2) X10*3/uL Eos # (Auto) (0.0-0.4) X10*3/uL Baso # (Auto) (0.0-0.2) X10*3/uL Abs Immat Gran (auto) (0.00-0.03) X10*3/uL Absolute Neuts (auto) (2.0-8.3) x10*3/uL Absolute Nucleated RBC (0.0-0.012) X10*3/uL Nucleated RBC % (auto) (0.0-0.2) /100WBC PT (10.0-13.1) SEC INR (0.9-1.1) Sodium (135-145) mmol/L Potassium (3.3-5.1) mmol/L Chloride (96-108) mmol/L Carbon Dioxide (22-29) mmol/L Anion Gap (12-20) BUN (9-16) mg/dL Creatinine (0.5-1.4) mg/dL Estim Creat Clear Calc Estimated GFR Random Glucose (60-115) mg/dL Calcium (8.4-10.2) mg/dL Magnesium (1.6-2.6) mg/dL Total Bilirubin (0.0-1.0) mg/dL AST (5-31) U/L ALT (0-31) U/L Alkaline Phosphatase (39-117) U/L Troponin I High Sens < 3.5 (<3.5-17.0) ng/L Total Protein (6.5-8.0) g/dL Albumin (3.5-5.0) g/dL Lipase (8-78) U/L Beta HCG, Quant mIU/mL COVID-19 (SANDOVAL) Negative (Negative) COVID-19 Clin Com See Note Influenza Type A (SERAFIN) Negative (Negative) Influenza Type B (SERAFIN) Negative (Negative) Influenza A & B Note See Note <Da Mcgill MD - Last Filed: 04/10/22 17:16> Independent Interpretation I performed an independent interpretation of an: Rhythm Strip and Plain X-Ray <Da Mcgill MD - Last Filed: 04/10/22 17:16> Interpretation: My interpretation of the patient's two-view chest x-ray: No acute disease noted My independent interpretation the patient's 12 EKG done at 14:44 is as follows: Normal sinus rhythm with a rate of 77, normal AL interval, QRS duration and QTC intervals, inverted T-wave in lead 3, no ST segment elevation, no ST segment depression, no PACs, no PVCs when compared to EKG dated 06/22/2020 (there was artifact in the baseline) but there was no acute change compared today's EKG. <Da Mcgill MD - Last Filed: 04/10/22 17:16> Radiology Impression Discussion of test interpretation with radiology: I have reviewed the radiologist's reading. <Da Mcgill MD - Last Filed: 04/10/22 17:16> Radiologist Impression: XR chest 2V IMPRESSION: No acute cardiopulmonary process. Dictated By: Paul Byrne MD Signed By: <Electronically signed by Paul Byrne MD in [place]>04/10/22 1525 <Da Mcgill MD - Last Filed: 04/10/22 17:16> Independent Historian Clinical information obtained from an independent historian. History obtained from or confirmed by: Other (Friend, Edgar is here in the emergency department with the patient) <Da Mcgill MD - Last Filed: 04/10/22 17:16> Discharge Plan Discharge Clinical Impression: Acute costochondritis <Kathy Vale CNP - Last Filed: 04/10/22 14:54> Patient Disposition: Home, Self-Care <Kathy Vale CNP - Last Filed: 04/10/22 14:54> Instructions: Costochondritis (ED) <Kathy Vale CNP - Last Filed: 04/10/22 14:54> Additional Instructions: Your EKG was normal and unchanged from your previous EKG in 2020. Your chest x-ray was unremarkable as well. Your complete blood count was normal. Your comprehensive metabolic panel was normal as well. Your troponin (marker of heart damage) was below detectable limits suggesting that you have not had any heart damage/heart attack as the cause of your pain. Your pain is most likely caused by inflammation of the joints of your chest (costochondritis) and this is treated with anti-inflammatory medications such as ibuprofen. Take ibuprofen 200 mg pills, 2 pills every 6 hours for 4-5 days then as needed for pain Take Tylenol (acetaminophen) 500 mg pills, 2 pills every 4 to 6 hours as needed for pain. Follow-up with your doctor in 2 days. Please return to the emergency department if your symptoms get worse or if you develop any symptoms that are concerning to you. <Kathy Vale CNP - Last Filed: 04/10/22 14:54>
[2022-04-10 15:52] LABS: MANUAL DIFF FLAG NO
[2022-04-10 15:54] LABS: Basophils Percent Auto 0.3 % (0-2); Eosinophils Absolute Auto 0.1 X10*3/uL (0.0-0.4); Eosinophils Percent Auto 1.2 % (0-4); Hematocrit 43.1 % (37.0-47.0); Hemoglobin 14.5 g/dl (12.0-16.0); Imm Gran Abs Auto 0.05 X10*3/uL (0.00-0.03); Imm Gran Pct Auto 0.4 % (0.0-0.4); Lymphocytes Absolute Auto 2.9 X10*3/uL (1.2-4.9); Lymphocytes Percent Auto 24.8 % (20-40); Mean Corpuscular HGB Conc 33.6 g/dl (31.0-35.0); Mean Corpuscular Hemoglobin 29.7 pg (27.0-33.0); Mean Corpuscular Volume 88.3 fL (80.0-98.0); Mean Platelet Volume 9.9 fL (9.4-12.3); Monocytes Absolute Auto 0.7 X10*3/uL (0.1-1.2); Monocytes Percent Auto 5.7 % (2-11); Neutrophils Absolute Auto 7.8 x10*3/uL (2.0-8.3); Neutrophils Percent Auto 67.6 % (45-73); Platelet Count 225 X10*3/uL (160-400); Red Blood Count 4.88 X10*6/uL (4.20-5.50); Red Cell Distribution Width 13.1 % (11.0-16.0); White Blood Count 11.6 X10*3/uL (4.8-10.8)
[2022-04-10 16:11] LABS: COVID-19 Test Negative (Negative); IDNOW Serial# 16C4AD1C; IDNOW Serial# BCCEAD1C
[2022-04-10 16:12] LABS: Influenza A Negative (Negative); Influenza B2 Negative (Negative)
[2022-04-10 16:20] LABS: Alanine Aminotransferase 9 U/L (0-31); Albumin Level 4.3 g/dL (3.5-5.0); Alkaline Phosphatase 73 U/L (39-117); Anion Gap 14 (12-20); Aspartate Amino Transferase 12 U/L (5-31); Bilirubin Total 0.5 mg/dL (0.0-1.0); Blood Urea Nitrogen 7 mg/dL (9-16); Calcium 9.5 mg/dL (8.4-10.2); Carbon Dioxide 22 mmol/L (22-29); Chloride 106 mmol/L (96-108); Creatinine Clr Calc Pharmacy 128.4; Estimated Glomerular Filt Rate > 60; Glucose Random 94 mg/dL (60-115); Lipase 23 U/L (8-78); Magnesium 1.9 mg/dL (1.6-2.6); Potassium 4.4 mmol/L (3.3-5.1); Sodium 138 mmol/L (135-145)
[2022-04-10 16:21] LABS: Troponin-I High Sensitivity < 3.5 ng/L (<3.5-17.0)
[2022-04-10 16:23] LABS: HCG Quantitative < 2 mIU/mL
== END 2022-04-10 17:17 | disposition home or self-care (01) ==
PROVIDERS: Nurse Practitioner Family; Emergency Provider Emergency Medicine Emergency Medical Services
DX: R07.89 Other chest pain (principal); M94.0 Chondrocostal junction syndrome [Tietze]; Z20.822 Contact with and (suspected) exposure to COVID-19; Z20.828 Contact with and (suspected) exposure to other viral communicable diseases; Z79.899 Other long term (current) drug therapy
CPT/HCPCS: 71046; 80053; 83690; 83735; 84484; 84702; 85025; 85610; 87502; 87635; 93005; 99283

== ENCOUNTER 2022-08-06 22:16 | Emergency (ER) | payer OTHER, SELFPAY ==
[2022-08-06 22:25] VITALS: BP 124/83; PULSE 120; RESP 16; TEMP 36.6; O2SAT 99; BMI 42.9
--- NOTE | 2022-08-07 | ECG_ITS ---
Test Reason : DIZZINESS Blood Pressure : / mmHG Vent. Rate : 103 BPM Atrial Rate : 103 BPM P-R Int : 154 ms QRS Dur : 074 ms QT Int : 338 ms P-R-T Axes : 041 010 011 degrees QTc Int : 442 ms Sinus tachycardia Cannot rule out Anterior infarct , age undetermined Abnormal ECG When compared with ECG of 10-APR-2022 14:44, Nonspecific T wave abnormality now evident in Anterolateral leads Referred By: Generic ED Physician Electronically Signed By:Kavon Willis
[2022-08-07 00:09] VITALS: BP 113/77; PULSE 111; RESP 16; TEMP 36.5; O2SAT 98
[2022-08-07 00:20] LABS: Hematocrit 43.7 % (37.0-47.0); Hemoglobin 14.6 g/dl (12.0-16.0); Mean Corpuscular HGB Conc 33.4 g/dl (31.0-35.0); Mean Corpuscular Volume 89.7 fL (80.0-98.0); Mean Platelet Volume 10.4 fL (9.4-12.3); Platelet Count 251 X10*3/uL (160-400); Red Blood Count 4.87 X10*6/uL (4.20-5.50); Red Cell Distribution Width 13.2 % (11.0-16.0); White Blood Count 14.5 X10*3/uL (4.8-10.8)
--- NOTE | 2022-08-07 00:21 | MHC.EDTECH ---
patient ekg taken and was read by provider ,blood drawn and sent to lab ,vitals sign re check .
[2022-08-07 00:25] LABS: Appearance Urine Clear; Color Urine Yellow; Glucose Urine UA Negative (Negative); Leukocyte Esterase Urine Trace (Negative); Nitrite Urine Negative (Negative); PH 6.5 (5.0-9.0); UMIC TRIGGER UACC YES; Urine Blood Negative (Negative); Urine Ketones Negative (Negative); Urine Protein Negative (Neg-Trace)
[2022-08-07 00:27] LABS: Bacteria Urine Trace (None Seen); Hyaline Casts Urine 0-2 /LPF (0-2); RBC Urine 0-2 /HPF (0-2); UACC Culture Trigger YES
[2022-08-07 00:39] LABS: Alanine Aminotransferase 13 U/L (0-31); Albumin Level 4.5 g/dL (3.5-5.0); Alkaline Phosphatase 89 U/L (39-117); Anion Gap 14 (12-20); Aspartate Amino Transferase 17 U/L (5-31); Bilirubin Total 0.4 mg/dL (0.0-1.0); Blood Urea Nitrogen 9 mg/dL (9-16); Calcium 9.9 mg/dL (8.4-10.2); Carbon Dioxide 25 mmol/L (22-29); Chloride 106 mmol/L (96-108); Creatinine Clr Calc Pharmacy 117.2; Estimated Glomerular Filt Rate > 60; Glucose Random 103 mg/dL (60-115); Potassium 4.9 mmol/L (3.3-5.1); Sodium 140 mmol/L (135-145); Total Protein 7.7 g/dL (6.5-8.0)
[2022-08-07 02:19] VITALS: BP 125/72; PULSE 99; RESP 19; TEMP 36.9; O2SAT 100
--- NOTE | 2022-08-07 02:30 | PC.NURSE ---
this rn assumed care of pt from waiting room @ 0219. pt placed on environmental monitoring technician. pt educated on use of call caicedo. pt calm and cooperative. pt awaiting to be seen by ed provider
[2022-08-07 02:31] LABS: UPreg QC Valid YES; Urine Pregnancy NEGATIVE (NEGATIVE)
--- NOTE | 2022-08-07 02:50 | ED.DIZZY ---
HPI - Dizziness General Chief Complaint: Dizziness Stated Complaint: dizziness,numbness Time Seen by Provider: 08/07/22 02:21 History of Present Illness HPI Narrative: Patient is a 32-year-old female been under lot of stress. Patient not sleep well the night before. Only had a breakfast sandwich yesterday morning. Tonight patient had lightheadedness dizziness. She tries to eat a sandwich after while the symptoms seems to have gotten better. She denies any chest pain. No diaphoresis. No focal weakness. Not on control. No leg swelling. No history of blood clots. Does not think she is . No pain on urination. No new medication. No focal weakness. No exceptionally heavy menstruations. Timing duration has been normal. Related Data Allergies Allergy/AdvReac Type Severity Reaction Status Date / Time No Known Allergies Allergy Unverified 11/19/19 19:20 [No Known Allergies*] Review of Systems Review of Systems: No fever no chills no coughing congestion or history symptoms No diaphoresis. No pain on urination Positive generalized malaise Positive dizziness Yes all other systems are reviewed and are negative [facility]LY [facility] Past Medical History Medical History COVID-19 Social History Social History Advance Directives: No Advance Directives Information Provided: Yes Physical Exam Vital Signs: Vital Signs: Last Vital Signs Temp 98.4 F 08/07/22 02:19 Pulse 111 H 08/07/22 03:18 Resp 19 08/07/22 02:19 BP 111/70 08/07/22 03:18 Pulse Ox 100 08/07/22 02:19 O2 Del Method Room Air 08/07/22 02:19 BMI result Body Mass Index 42.9 Appearance: Alert. Oriented X3. No acute distress. Eyes: Pupils equal, round and reactive to light. ENT: Pharynx normal. Neck: Normal inspection. Neck supple. No lymph nodes noted. No crepitus CVS: Normal heart rate and rhythm. Pulses normal. Normal S1 and S2 Respiratory: No respiratory distress. Breath sounds normal. No Wheezing. No rales Abdomen: Soft and nontender. No rigidity. No distention. good BS x4 Skin: Skin warm and dry. Normal skin color. Normal skin turgor. Extremities: No lower extremity edema. Neurovascular intact to all extremities. No Lacerations. No Rash Neuro: Oriented X 3. No motor deficit. No sensory deficit. Moving all extermities. No slurred speech Medications Administered Generic Name Dose Route Start Last Admin Trade Name Freq PRN Reason Stop Dose Admin Sodium Chloride 1,000 mls @ 999 mls/hr 08/07/22 03:00 08/07/22 03:40 Ns IV 08/07/22 04:00 999 mls/hr .Q1H1M RAJSEH Administration Medical Decision Making Medical Decision Making [facility] Narrative: Patient's urine showed no signs of infection. test was negative. Unlikely to be related issues. Patient's hemoglobin is normal there is no evidence of anemia. Patient has no significant cardiac risk factors. No diabetes no high blood pressure no high cholesterol not a smoker never had heart attacks in the past. Patient has no risk for PE there is no leg swelling there is no travel patient not on control history not consistent with PE. Patient's alcohol was negative. No evidence for intoxication. Given IV fluids. Given p.o. at challenge. Will discharge patient home. In stable condition. Question secondary to anxiety, dehydration. In stable condition. Differential Diagnosis Differential Diagnoses: The differential diagnosis associated with the presentation includes Anemia, anxiety, urinary tract infection, palpitation Lab Data [facility] Lab Attestation statement: I reviewed the patient's lab results. 08/07/22 00:14 08/07/22 00:14 Labs: Lab Results 08/07/22 08/07/22 08/07/22 Range/Units 00:14 00:14 00:14 WBC 14.5 H (4.8-10.8) X10*3/uL RBC 4.87 (4.20-5.50) X10*6/uL Hgb 14.6 (12.0-16.0) g/dl Hct 43.7 (37.0-47.0) % MCV 89.7 (80.0-98.0) fL MCH 30.0 (27.0-33.0) pg MCHC 33.4 (31.0-35.0) g/dl RDW 13.2 (11.0-16.0) % Plt Count 251 (160-400) X10*3/uL MPV 10.4 (9.4-12.3) fL Absolute Nucleated RBC 0.000 (0.0-0.012) X10*3/uL Nucleated RBC % (auto) 0.0 (0.0-0.2) /100WBC Sodium 140 (135-145) mmol/L Potassium 4.9 (3.3-5.1) mmol/L Chloride 106 (96-108) mmol/L Carbon Dioxide 25 (22-29) mmol/L Anion Gap 14 (12-20) BUN 9 (9-16) mg/dL Creatinine 0.85 (0.5-1.4) mg/dL Estim Creat Clear Calc 117.2 Estimated GFR > 60 Random Glucose 103 (60-115) mg/dL Calcium 9.9 (8.4-10.2) mg/dL Total Bilirubin 0.4 (0.0-1.0) mg/dL AST 17 (5-31) U/L ALT 13 (0-31) U/L Alkaline Phosphatase 89 (39-117) U/L Total Protein 7.7 (6.5-8.0) g/dL Albumin 4.5 (3.5-5.0) g/dL Urine Color Yellow Urine Appearance Clear Urine pH 6.5 (5.0-9.0) Ur Specific [place] 1.010 (1.005-1.025) Urine Protein Negative (Neg-Trace) mg/dL Urine Glucose (UA) Negative (Negative) mg/dL Urine Ketones Negative (Negative) mg/dL Urine Blood Negative (Negative) Urine Nitrite Negative (Negative) Ur Leukocyte Esterase Trace H (Negative) Urine RBC 0-2 (0-2) /HPF Urine WBC 6-10 H (0-5) /HPF Ur Squamous Epith Cells 6-10 (0-2) /HPF Urine Bacteria Trace (None Seen) Hyaline Casts 0-2 (0-2) /LPF Urine Test (NEGATIVE) Ethyl Alcohol < 10 mg/dL 08/07/22 Range/Units 00:14 WBC (4.8-10.8) X10*3/uL RBC (4.20-5.50) X10*6/uL Hgb (12.0-16.0) g/dl Hct (37.0-47.0) % MCV (80.0-98.0) fL MCH (27.0-33.0) pg MCHC (31.0-35.0) g/dl RDW (11.0-16.0) % Plt Count (160-400) X10*3/uL MPV (9.4-12.3) fL Absolute Nucleated RBC (0.0-0.012) X10*3/uL Nucleated RBC % (auto) (0.0-0.2) /100WBC Sodium (135-145) mmol/L Potassium (3.3-5.1) mmol/L Chloride (96-108) mmol/L Carbon Dioxide (22-29) mmol/L Anion Gap (12-20) BUN (9-16) mg/dL Creatinine (0.5-1.4) mg/dL Estim Creat Clear Calc Estimated GFR Random Glucose (60-115) mg/dL Calcium (8.4-10.2) mg/dL Total Bilirubin (0.0-1.0) mg/dL AST (5-31) U/L ALT (0-31) U/L Alkaline Phosphatase (39-117) U/L Total Protein (6.5-8.0) g/dL Albumin (3.5-5.0) g/dL Urine Color Urine Appearance Urine pH (5.0-9.0) Ur Specific [place] (1.005-1.025) Urine Protein (Neg-Trace) mg/dL Urine Glucose (UA) (Negative) mg/dL Urine Ketones (Negative) mg/dL Urine Blood (Negative) Urine Nitrite (Negative) Ur Leukocyte Esterase (Negative) Urine RBC (0-2) /HPF Urine WBC (0-5) /HPF Ur Squamous Epith Cells (0-2) /HPF Urine Bacteria (None Seen) Hyaline Casts (0-2) /LPF Urine Test NEGATIVE (NEGATIVE) Ethyl Alcohol mg/dL Independent Interpretation I performed an independent interpretation of an: EKG Interpretation: Sinus heart rate is 80 IA QRS QT within normal limits there is no acute ST segment elevations. Discharge Plan Discharge Clinical Impression: Acute dehydration, Vaso vagal episode Patient Disposition: Home, Self-Care Instructions: Near Syncope (ED), Dehydration (ED) Referrals: Physician,None [Primary Care Provider] - 08/09/22
[2022-08-07 03:15] VITALS: BP 106/63; PULSE 82
[2022-08-07 03:16] LABS: Ethanol < 10 mg/dL
[2022-08-07 03:17] VITALS: BP 121/79; PULSE 101
[2022-08-07 03:18] VITALS: BP 111/70; PULSE 111
[2022-08-07] MEDS: 0.9 % Sodium Chloride 1,000 ML 999 ML IV (03:40)
--- NOTE | 2022-08-07 03:47 | PC.NURSE ---
this rn placed 20g iv in R Ac. pt tolerated well. pt medicated according to may. lights dimmed pt reports no new needs at this time
--- NOTE | 2022-08-07 04:55 | PC.NURSE ---
discharge orders placed for this pt. IVF still running. pt made aware of plan to discharge once IVF have infused
[2022-08-07 05:42] VITALS: BP 110/71; PULSE 82; RESP 16; TEMP 36.4; O2SAT 97
== END 2022-08-07 06:39 | disposition home or self-care (01) ==
PROVIDERS: Emergency Provider Emergency Medicine Emergency Medical Services
DX: R55 Syncope and collapse (principal); E86.0 Dehydration
CPT/HCPCS: 36415; 80053; 80307; 81001; 81025; 85027; 87086; 93005; 99283; 99285